=== PATIENT | male | born 1955 | race Caucasian/White ===

== ENCOUNTER 2021-04-12 12:02 | Outpatient (CLI) | payer MEDICARE | END 2021-04-12 12:03 | disposition home or self-care (01) | LOC: CSHWCC 12:02 | PROVIDERS: ATTEND Nurse Practitioner Family | DX: R60.0 Localized edema (principal); I89.0 Lymphedema, not elsewhere classified; N17.9 Acute kidney failure, unspecified; I11.0 Hypertensive heart disease with heart failure; I50.32 Chronic diastolic (congestive) heart failure; J44.9 Chronic obstructive pulmonary disease, unspecified | CPT/HCPCS: 97139; G0463; 99203 ==

== ENCOUNTER 2021-11-10 13:46 | Inpatient (IN) | payer MEDICARE, SELFPAY ==
[2021-11-10 15:13] LABS: #Basophils 0.1 10x3/uL (0.0-0.2); #Eosinphils 0.1 10x3/uL (0.0-0.5); #Monocytes 0.9 10x3/uL (0.0-1.1); #Neutrophils 10.4 10x3/uL (1.5-8.4); %Basophils 0.7 % (0.0-2.0); %Eosinophils 0.8 % (0.0-6.0); %Lymphocytes 7.5 % (18.0-47.0); %Monocytes 6.8 % (0.0-10.0); %Neutrophils 81.9 % (40.0-75.0); Hemoglobin 13.1 g/dL (13.5-17.5); Mean Corpuscular HGB CONC 31.5 g/dL (32.0-36.0); Mean Corpuscular Hemoglobin 28.9 pg (27.0-33.0); Mean Corpuscular Volume 91.8 fl (81.2-95.1); Mean Platelet Volume 9.2 fl (7.4-10.4); Platelet Count 253 10x3/uL (150-450); RBC Distribution Width 17.1 % (11.5-14.5); Red Blood Cell (RBC) Count 4.53 10x6/uL (4.32-5.72); White Blood Cell (WBC) Count 12.7 10x3/uL (3.5-10.5)
[2021-11-10] MEDS ORDERED: Cefepime 2 GM VIAL ONE (15:25)
[2021-11-10 15:26] LABS: INR-International Normal Ratio 1.2; PTT 32.8 sec (22.0-33.0); Prothrombin Time 12.8 sec (9.5-12.1)
[2021-11-10] MEDS ORDERED: Morphine 2 MG/ML VIAL ONE (15:28)
[2021-11-10 15:30] LABS: ALT (SGPT) 12 U/L (8-55); AST (SGOT) 7 U/L (5-34); Albumin 3.3 g/dL (3.4-4.8); Alkaline Phosphatase 92 U/L (40-110); Anion Gap 20 mmol/L (10-20); BUN (Urea Nitrogen) 91 mg/dL (8.4-25.7); Bilirubin, Total 0.5 mg/dL (0.2-1.2); Calc. Creatinine Clearance 0 mL/min (70-130); Calcium 8.7 mg/dL (7.8-10.44); Carbon Dioxide 15 mmol/L (23-31); Chloride 101 mmol/L (98-107); Globulin 4.1 g/dL (2.4-3.5); Glucose 93 mg/dL (80-115); Potassium 5.6 mmol/L (3.5-5.1); Protein, Total 7.4 g/dL (5.8-8.1); Sodium 130 mmol/L (136-145)
[2021-11-10] MEDS ORDERED: Calcium Carbonate 500 MG ChewTAB PO PRN (16:43)
[2021-11-10] MEDS ORDERED: Acetaminophen 325 MG TAB PO PRN (16:43)
[2021-11-10] MEDS ORDERED: Senokot S 8.6-50 MG TAB PO PRN (16:43)
[2021-11-10] MEDS ORDERED: Ondansetron ODT 4 MG TAB PO PRN (16:43)
[2021-11-10] MEDS ORDERED: Ondansetron PF 4 MG/2 ML Vial IVP PRN (16:43)
[2021-11-10] MEDS ORDERED: Norepinephrine 8 MG/0.9% NS 250 ML ONE (16:45)
[2021-11-10] MEDS ORDERED: Vancomycin HCl 1 GM in Sodium Chloride 0.9% 250 ML 300 ML IVPB SCH (17:00)
[2021-11-10 17:06] LABS: SARS-CoV-2 NAA Rapid Test Not Detected (NotDetected)
[2021-11-10 17:07] LABS: CKMB 6.2 ng/mL (0-6.6)
[2021-11-10 17:25] LABS: Bilirubin Neg (Negative); Blood, Urine 25 (Negative); Clarity Clear (Clear); Glucose, Urine (Dipstick) Normal (Negative); Ketone, Urine Negative (Negative); Leukocyte 500 (Negative); Nitrite Negative (Negative); Protein, Urine (Dipstick) 30 mg/dl (Neg-Trace)
[2021-11-10 17:33] LABS: Bacteria/HPF 3+ HPF (None Seen); Squamous Epithelial 0-3 HPF (0-3); WBC/HPF 21-50 HPF (0-3)
[2021-11-10] MEDS: HYDROcodone/Acetaminophen 5/325 mg Tablet PO PRN (20:08)
[2021-11-10] MEDS ORDERED: Insulin Regular 300 UNITS/3 ML VIAL IVP SCH (20:15)
[2021-11-10] MEDS ORDERED: Dextrose 50% Abboject 50 ML SYRINGE SLOW IVP SCH (20:15)
[2021-11-10 20:24] LABS: Anion Gap 19 mmol/L (10-20); BUN (Urea Nitrogen) 89 mg/dL (8.4-25.7); Calc. Creatinine Clearance 22 mL/min (70-130); Calcium 8.1 mg/dL (7.8-10.44); Carbon Dioxide 14 mmol/L (23-31); Chloride 104 mmol/L (98-107); Glucose 123 mg/dL (80-115); Potassium 5.1 mmol/L (3.5-5.1); Sodium 132 mmol/L (136-145)
[2021-11-10] MEDS: Morphine 2 MG/ML VIAL SLOW IVP PRN (21:14)
[2021-11-10] MEDS ORDERED: Midazolam HCl 2 mg/2 ml Vial ONE (21:29)
[2021-11-10] MEDS: Nicotine 14 MG PATCH TD SCH ×2 (22:25→22:28)
[2021-11-10] MEDS: Tamsulosin HCl 0.4 MG CAP PO SCH (22:25)
[2021-11-10] MEDS: Atorvastatin Calcium 20 MG TAB PO SCH (22:25)
[2021-11-10] MEDS: Apixaban 5 MG TAB PO SCH (22:25)
[2021-11-10] MEDS: Sodium Bicarbonate 75 MEQ in Dextrose 5% in Water 500 ML IV SCH (22:45)
[2021-11-10] MEDS ORDERED: Albumin 25% 25 GM/100 ML BOT IVPB SCH (23:15)
[2021-11-11 02:57] LABS: Bilirubin Neg (Negative); Blood, Urine 250 (Negative); Clarity Slightly Cloudy (Clear); Glucose, Urine (Dipstick) 250 mg/dL (Negative); Ketone, Urine Negative (Negative); Leukocyte 500 (Negative); Nitrite Negative (Negative); Protein, Urine (Dipstick) 30 mg/dl (Neg-Trace); Urobilinogen Normal mg/dL (Less than 2)
[2021-11-11] MEDS: Morphine 2 MG/ML VIAL SLOW IVP PRN ×3 (02:57→20:38)
[2021-11-11 03:12] LABS: Creatinine, Urine 97.62 mg/dL (63-166); Protein, Urine Random Quant 49 mg/dL (1-14)
[2021-11-11 03:22] LABS: Bacteria/HPF 1+ HPF (None Seen); RBC/HPF 21-50 HPF (0-3); Renal Epithelial 0-3 HPF (None Seen); Squamous Epithelial 0-3 HPF (0-3); WBC/HPF 21-50 HPF (0-3)
[2021-11-11 04:34] LABS: #Basophils 0.1 10x3/uL (0.0-0.2); #Eosinphils 0.1 10x3/uL (0.0-0.5); #Monocytes 1.1 10x3/uL (0.0-1.1); #Neutrophils 9.2 10x3/uL (1.5-8.4); %Basophils 0.5 % (0.0-2.0); %Eosinophils 1.1 % (0.0-6.0); %Lymphocytes 5.2 % (18.0-47.0); %Monocytes 9.6 % (0.0-10.0); Hemoglobin 11.4 g/dL (13.5-17.5); Mean Corpuscular HGB CONC 30.8 g/dL (32.0-36.0); Mean Corpuscular Hemoglobin 28.6 pg (27.0-33.0); Mean Corpuscular Volume 92.7 fl (81.2-95.1); Mean Platelet Volume 9.3 fl (7.4-10.4); Platelet Count 284 10x3/uL (150-450); RBC Distribution Width 17.1 % (11.5-14.5); Red Blood Cell (RBC) Count 3.99 10x6/uL (4.32-5.72); White Blood Cell (WBC) Count 11.3 10x3/uL (3.5-10.5)
[2021-11-11 04:58] LABS: Anion Gap 19 mmol/L (10-20); BUN (Urea Nitrogen) 85 mg/dL (8.4-25.7); Calc. Creatinine Clearance 24 mL/min (70-130); Calcium 7.7 mg/dL (7.8-10.44); Carbon Dioxide 15 mmol/L (23-31); Chloride 104 mmol/L (98-107); Glucose 129 mg/dL (80-115); Potassium 4.4 mmol/L (3.5-5.1); Sodium 134 mmol/L (136-145)
[2021-11-11] MEDS ORDERED: Vancomycin 1 GM in Premix Bag 1 BAG IVPB PRN (06:21)
[2021-11-11] MEDS: Amiodarone 200 MG TAB PO SCH (08:20)
[2021-11-11] MEDS: HYDROcodone/Acetaminophen 5/325 mg Tablet PO PRN ×3 (08:20→23:35)
[2021-11-11] MEDS: Famotidine 20 MG TAB PO SCH (08:21)
[2021-11-11] MEDS: Sodium Bicarbonate Tab 325 MG TAB PO SCH ×3 (08:21→20:06)
[2021-11-11] MEDS: Apixaban 5 MG TAB PO SCH ×2 (08:21→20:06)
[2021-11-11] MEDS: Clopidogrel Bisulfate 75 MG TAB PO SCH (08:21)
[2021-11-11] MEDS ORDERED: Empagliflozin 10 MG TAB PO SCH (09:00)
[2021-11-11] MEDS ORDERED: Enoxaparin Sodium 40 MG/0.4 ML SYRINGE SC SCH (09:00)
[2021-11-11] MEDS: Sodium Bicarbonate 75 MEQ in Dextrose 5% in Water 500 ML IV SCH ×2 (12:07→23:13)
[2021-11-11 13:57] LABS: Sodium, Urine Less than 20 mmol/L (Not Available); Urea Nitrogen, Random Urine 671 mg/dl
[2021-11-11] MEDS: Cefepime 1 GM in Sodium Chloride 0.9% 100 ML IVPB SCH (14:40)
[2021-11-11 15:30] LABS: Vancomycin, Random 15.1 ug/mL (See Comment)
[2021-11-11] MEDS ORDERED: Vancomycin HCl 500 MG in Sodium Chloride 0.9% 100 ML IVPB SCH (16:00)
[2021-11-11] MEDS: Nicotine 14 MG PATCH TD SCH (16:01)
[2021-11-11] MEDS: Atorvastatin Calcium 20 MG TAB PO SCH (20:07)
[2021-11-11] MEDS: Norepinephrine 8 MG/0.9% NS 250 ML IVPB SCH (20:07)
[2021-11-11] MEDS: Tamsulosin HCl 0.4 MG CAP PO SCH (20:07)
[2021-11-12 05:01] LABS: #Eosinphils 0.1 10x3/uL (0.0-0.5); #Monocytes 0.7 10x3/uL (0.0-1.1); #Neutrophils 5.3 10x3/uL (1.5-8.4); %Basophils 0.6 % (0.0-2.0); %Eosinophils 1.7 % (0.0-6.0); %Lymphocytes 9.6 % (18.0-47.0); %Monocytes 10.4 % (0.0-10.0); Hemoglobin 10.3 g/dL (13.5-17.5); Mean Corpuscular HGB CONC 31.3 g/dL (32.0-36.0); Mean Corpuscular Hemoglobin 28.8 pg (27.0-33.0); Mean Corpuscular Volume 91.9 fl (81.2-95.1); Mean Platelet Volume 9.1 fl (7.4-10.4); Platelet Count 207 10x3/uL (150-450); Red Blood Cell (RBC) Count 3.58 10x6/uL (4.32-5.72); White Blood Cell (WBC) Count 7.1 10x3/uL (3.5-10.5)
[2021-11-12 05:08] LABS: Anion Gap 15 mmol/L (10-20); BUN (Urea Nitrogen) 67 mg/dL (8.4-25.7); Calc. Creatinine Clearance 35 mL/min (70-130); Calcium 7.9 mg/dL (7.8-10.44); Carbon Dioxide 19 mmol/L (23-31); Chloride 102 mmol/L (98-107); Glucose 118 mg/dL (80-115); Potassium 4.1 mmol/L (3.5-5.1); Sodium 132 mmol/L (136-145)
[2021-11-12] MEDS: Norepinephrine 8 MG/0.9% NS 250 ML IVPB SCH (09:55)
[2021-11-12] MEDS: Sodium Bicarbonate Tab 325 MG TAB PO SCH ×3 (09:56→20:16)
[2021-11-12] MEDS: Torsemide 20 MG TAB PO SCH (09:56)
[2021-11-12] MEDS: HYDROcodone/Acetaminophen 5/325 mg Tablet PO PRN ×3 (09:57→20:52)
[2021-11-12] MEDS: Clopidogrel Bisulfate 75 MG TAB PO SCH (09:58)
[2021-11-12] MEDS: Apixaban 5 MG TAB PO SCH ×2 (09:58→20:16)
[2021-11-12] MEDS: Amiodarone 200 MG TAB PO SCH (09:58)
[2021-11-12] MEDS: Famotidine 20 MG TAB PO SCH (09:59)
[2021-11-12] MEDS: Morphine 2 MG/ML VIAL SLOW IVP PRN ×2 (11:39→23:40)
[2021-11-12] MEDS: Cefepime 1 GM in Sodium Chloride 0.9% 100 ML IVPB SCH (14:17)
[2021-11-12 15:47] LABS: Vancomycin, Random 13.1 ug/mL (See Comment)
[2021-11-12] MEDS ORDERED: Vancomycin HCl 1 GM in Sodium Chloride 0.9% 250 ML 250 ML IVPB SCH (16:00)
[2021-11-12] MEDS: Nicotine 14 MG PATCH TD SCH (16:05)
[2021-11-12] MEDS: Atorvastatin Calcium 20 MG TAB PO SCH (20:16)
[2021-11-12] MEDS: Tamsulosin HCl 0.4 MG CAP PO SCH (20:16)
[2021-11-13] MEDS: HYDROcodone/Acetaminophen 5/325 mg Tablet PO PRN ×3 (03:07→19:28)
[2021-11-13] MEDS: Morphine 2 MG/ML VIAL SLOW IVP PRN (04:20)
[2021-11-13 06:44] LABS: #Eosinphils 0.1 10x3/uL (0.0-0.5); #Monocytes 0.7 10x3/uL (0.0-1.1); #Neutrophils 5.1 10x3/uL (1.5-8.4); %Basophils 0.4 % (0.0-2.0); %Eosinophils 1.5 % (0.0-6.0); %Lymphocytes 9.5 % (18.0-47.0); %Monocytes 10.1 % (0.0-10.0); %Neutrophils 75.8 % (40.0-75.0); Anion Gap 14 mmol/L (10-20); BUN (Urea Nitrogen) 55 mg/dL (8.4-25.7); Calc. Creatinine Clearance 51 mL/min (70-130); Calcium 8.5 mg/dL (7.8-10.44); Carbon Dioxide 21 mmol/L (23-31); Chloride 103 mmol/L (98-107); Glucose 86 mg/dL (80-115); Hemoglobin 10.6 g/dL (13.5-17.5); Mean Corpuscular HGB CONC 32.1 g/dL (32.0-36.0); Mean Corpuscular Volume 90.2 fl (81.2-95.1); Mean Platelet Volume 8.9 fl (7.4-10.4); Platelet Count 189 10x3/uL (150-450); Potassium 3.8 mmol/L (3.5-5.1); RBC Distribution Width 16.9 % (11.5-14.5); Red Blood Cell (RBC) Count 3.66 10x6/uL (4.32-5.72); Sodium 134 mmol/L (136-145); White Blood Cell (WBC) Count 6.8 10x3/uL (3.5-10.5)
[2021-11-13] MEDS: Clopidogrel Bisulfate 75 MG TAB PO SCH (08:16)
[2021-11-13] MEDS: Amiodarone 200 MG TAB PO SCH (08:16)
[2021-11-13] MEDS: Apixaban 5 MG TAB PO SCH ×2 (08:16→20:43)
[2021-11-13] MEDS: Sodium Bicarbonate Tab 325 MG TAB PO SCH ×3 (08:16→20:43)
[2021-11-13] MEDS: Famotidine 20 MG TAB PO SCH (08:17)
[2021-11-13] MEDS: Torsemide 20 MG TAB PO SCH (08:17)
[2021-11-13] MEDS: Spironolactone 25 MG TAB PO SCH (09:07)
[2021-11-13] MEDS: Cefepime 1 GM in Sodium Chloride 0.9% 100 ML IVPB SCH (15:11)
[2021-11-13] MEDS: Nicotine 14 MG PATCH TD SCH (15:37)
[2021-11-13] MEDS ORDERED: Vancomycin HCl 750 MG in Sodium Chloride 0.9% 250 ML 250 ML IVPB SCH (17:00)
[2021-11-13] MEDS ORDERED: Sodium Chloride 0.9% 250 ML 250 ML ONE (19:29)
[2021-11-13] MEDS: Tamsulosin HCl 0.4 MG CAP PO SCH (20:43)
[2021-11-13] MEDS: Atorvastatin Calcium 20 MG TAB PO SCH (20:43)
[2021-11-14] MEDS: HYDROcodone/Acetaminophen 5/325 mg Tablet PO PRN ×3 (02:33→21:20)
[2021-11-14] MEDS: Cefepime 1 GM in Sodium Chloride 0.9% 100 ML IVPB SCH ×2 (02:33→14:12)
[2021-11-14 04:08] LABS: #Eosinphils 0.1 10x3/uL (0.0-0.5); #Monocytes 0.8 10x3/uL (0.0-1.1); #Neutrophils 6.3 10x3/uL (1.5-8.4); %Basophils 0.5 % (0.0-2.0); %Eosinophils 1.7 % (0.0-6.0); %Lymphocytes 9.5 % (18.0-47.0); %Monocytes 9.2 % (0.0-10.0); %Neutrophils 76.7 % (40.0-75.0); Hemoglobin 10.6 g/dL (13.5-17.5); Mean Corpuscular HGB CONC 31.5 g/dL (32.0-36.0); Mean Corpuscular Hemoglobin 28.5 pg (27.0-33.0); Mean Corpuscular Volume 90.3 fl (81.2-95.1); Mean Platelet Volume 9.1 fl (7.4-10.4); Platelet Count 191 10x3/uL (150-450); RBC Distribution Width 16.9 % (11.5-14.5); Red Blood Cell (RBC) Count 3.72 10x6/uL (4.32-5.72); White Blood Cell (WBC) Count 8.2 10x3/uL (3.5-10.5)
[2021-11-14 04:19] LABS: Anion Gap 14 mmol/L (10-20); BUN (Urea Nitrogen) 54 mg/dL (8.4-25.7); Calc. Creatinine Clearance 64 mL/min (70-130); Calcium 8.8 mg/dL (7.8-10.44); Carbon Dioxide 23 mmol/L (23-31); Chloride 104 mmol/L (98-107); Glucose 106 mg/dL (80-115); Potassium 3.9 mmol/L (3.5-5.1); Sodium 137 mmol/L (136-145)
[2021-11-14] MEDS ORDERED: Famotidine 20 MG TAB ONE (07:45)
[2021-11-14] MEDS: Famotidine 20 MG TAB PO SCH (08:13)
[2021-11-14] MEDS: Spironolactone 25 MG TAB PO SCH (08:14)
[2021-11-14] MEDS: Apixaban 5 MG TAB PO SCH ×2 (08:14→21:21)
[2021-11-14] MEDS: Clopidogrel Bisulfate 75 MG TAB PO SCH (08:14)
[2021-11-14] MEDS: Sodium Bicarbonate Tab 325 MG TAB PO SCH ×3 (08:14→21:22)
[2021-11-14] MEDS: Amiodarone 200 MG TAB PO SCH (08:14)
[2021-11-14] MEDS: Nicotine 14 MG PATCH TD SCH (14:13)
[2021-11-14] MEDS: Carvedilol 3.125 MG TAB PO SCH (17:12)
[2021-11-14] MEDS: Tamsulosin HCl 0.4 MG CAP PO SCH (21:20)
[2021-11-14] MEDS: Atorvastatin Calcium 20 MG TAB PO SCH (21:20)
[2021-11-15] MEDS: Cefepime 1 GM in Sodium Chloride 0.9% 100 ML IVPB SCH ×2 (04:00→14:49)
[2021-11-15] MEDS: HYDROcodone/Acetaminophen 5/325 mg Tablet PO PRN ×2 (04:21→20:34)
[2021-11-15 06:58] LABS: Hemoglobin 10.7 g/dL (13.5-17.5); Mean Corpuscular HGB CONC 29.5 g/dL (32.0-36.0); Mean Corpuscular Hemoglobin 28.7 pg (27.0-33.0); Mean Corpuscular Volume 97.3 fl (81.2-95.1); Mean Platelet Volume 9.9 fl (7.4-10.4); Platelet Count 218 10x3/uL (150-450); RBC Distribution Width 17.5 % (11.5-14.5); Red Blood Cell (RBC) Count 3.73 10x6/uL (4.32-5.72); White Blood Cell (WBC) Count 6.2 10x3/uL (3.5-10.5)
[2021-11-15] MEDS: Amiodarone 200 MG TAB PO SCH (08:00)
[2021-11-15] MEDS: Apixaban 5 MG TAB PO SCH ×2 (08:01→20:32)
[2021-11-15] MEDS: Spironolactone 25 MG TAB PO SCH (08:02)
[2021-11-15] MEDS: Carvedilol 3.125 MG TAB PO SCH ×2 (08:02→18:01)
[2021-11-15] MEDS: Clopidogrel Bisulfate 75 MG TAB PO SCH (08:03)
[2021-11-15] MEDS: Famotidine 20 MG TAB PO SCH (08:04)
[2021-11-15] MEDS: Sodium Bicarbonate Tab 325 MG TAB PO SCH ×3 (08:05→20:32)
[2021-11-15 08:48] LABS: Albumin 2.8 g/dL (3.4-4.8); Anion Gap 13 mmol/L (10-20); BUN (Urea Nitrogen) 50 mg/dL (8.4-25.7); BUN/Creatinine Ratio 35.21; Calc. Creatinine Clearance 77 mL/min (70-130); Calcium 9.3 mg/dL (7.8-10.44); Carbon Dioxide 24 mmol/L (23-31); Chloride 104 mmol/L (98-107); Glucose 97 mg/dL (80-115); Magnesium 2.1 mg/dL (1.6-2.6); Phosphorus 3.2 mg/dL (2.3-4.7); Sodium 137 mmol/L (136-145)
[2021-11-15] MEDS: Empagliflozin 10 MG TAB PO SCH (09:40)
[2021-11-15] MEDS ORDERED: Morphine 2 MG/ML VIAL SLOW IVP SCH (11:30)
[2021-11-15] MEDS: Nicotine 14 MG PATCH TD SCH (18:00)
[2021-11-15] MEDS: Tamsulosin HCl 0.4 MG CAP PO SCH (20:32)
[2021-11-15] MEDS: Atorvastatin Calcium 20 MG TAB PO SCH (20:32)
[2021-11-16] MEDS: Cefepime 1 GM in Sodium Chloride 0.9% 100 ML IVPB SCH ×2 (02:32→16:42)
[2021-11-16 05:02] LABS: Albumin 2.7 g/dL (3.4-4.8); Anion Gap 14 mmol/L (10-20); BUN (Urea Nitrogen) 49 mg/dL (8.4-25.7); BUN/Creatinine Ratio 37.12; Calc. Creatinine Clearance 85 mL/min (70-130); Calcium 9.1 mg/dL (7.8-10.44); Carbon Dioxide 25 mmol/L (23-31); Chloride 105 mmol/L (98-107); Glucose 95 mg/dL (80-115); Phosphorus 2.9 mg/dL (2.3-4.7); Potassium 4.5 mmol/L (3.5-5.1); Sodium 139 mmol/L (136-145)
[2021-11-16] MEDS: Clopidogrel Bisulfate 75 MG TAB PO SCH (08:50)
[2021-11-16] MEDS: Spironolactone 25 MG TAB PO SCH (08:50)
[2021-11-16] MEDS: Sodium Bicarbonate Tab 325 MG TAB PO SCH ×3 (08:50→20:50)
[2021-11-16] MEDS: Carvedilol 3.125 MG TAB PO SCH ×2 (08:50→18:40)
[2021-11-16] MEDS: Apixaban 5 MG TAB PO SCH ×2 (08:50→20:51)
[2021-11-16] MEDS: Amiodarone 200 MG TAB PO SCH (08:51)
[2021-11-16] MEDS: Famotidine 20 MG TAB PO SCH (08:51)
[2021-11-16] MEDS: HYDROcodone/Acetaminophen 5/325 mg Tablet PO PRN ×2 (08:52→16:43)
[2021-11-16] MEDS: Torsemide 20 MG TAB PO SCH (08:53)
[2021-11-16] MEDS: Empagliflozin 10 MG TAB PO SCH (09:51)
[2021-11-16] MEDS: Nicotine 14 MG PATCH TD SCH (18:40)
[2021-11-16] MEDS: Atorvastatin Calcium 20 MG TAB PO SCH (20:50)
[2021-11-16] MEDS: Tamsulosin HCl 0.4 MG CAP PO SCH (20:51)
[2021-11-17] MEDS: HYDROcodone/Acetaminophen 5/325 mg Tablet PO PRN ×4 (00:10→23:59)
[2021-11-17 05:23] LABS: Albumin 2.7 g/dL (3.4-4.8); Anion Gap 15 mmol/L (10-20); BUN (Urea Nitrogen) 49 mg/dL (8.4-25.7); BUN/Creatinine Ratio 35.25; Calc. Creatinine Clearance 85 mL/min (70-130); Calcium 9.3 mg/dL (7.8-10.44); Carbon Dioxide 26 mmol/L (23-31); Chloride 104 mmol/L (98-107); Glucose 94 mg/dL (80-115); Phosphorus 3.7 mg/dL (2.3-4.7); Potassium 4.5 mmol/L (3.5-5.1); Sodium 140 mmol/L (136-145)
[2021-11-17 07:20] LABS: Iron 45 ug/dL (65-175); Iron Binding Capacity, Total 294 mcg/dL (261-462)
[2021-11-17] MEDS ORDERED: Iron Sucrose Complex 400 MG in Sodium Chloride 0.9% 200 ML IVPB SCH (07:45)
[2021-11-17] MEDS: Famotidine 20 MG TAB PO SCH (09:35)
[2021-11-17] MEDS: Sodium Bicarbonate Tab 325 MG TAB PO SCH ×3 (09:35→21:00)
[2021-11-17] MEDS: Spironolactone 25 MG TAB PO SCH (09:36)
[2021-11-17] MEDS: Torsemide 20 MG TAB PO SCH (09:36)
[2021-11-17] MEDS: Carvedilol 3.125 MG TAB PO SCH ×2 (09:36→16:08)
[2021-11-17] MEDS: Ergocalciferol 1.25 MG(50,000 UNITS) CAP PO SCH (09:36)
[2021-11-17] MEDS: Clopidogrel Bisulfate 75 MG TAB PO SCH (09:37)
[2021-11-17] MEDS: Empagliflozin 10 MG TAB PO SCH (09:37)
[2021-11-17] MEDS: Apixaban 5 MG TAB PO SCH ×2 (09:37→21:00)
[2021-11-17] MEDS: Amiodarone 200 MG TAB PO SCH (09:38)
[2021-11-17] MEDS ORDERED: Digoxin 0.125 MG TAB PO SCH (11:00)
[2021-11-17] MEDS ORDERED: Cholecalciferol (Vitamin D3) 400 UNITS TAB PO SCH (11:00)
[2021-11-17] MEDS ORDERED: Morphine 2 MG/ML VIAL SLOW IVP SCH (12:15)
[2021-11-17 12:33] LABS: Free T4 (Free Thyroxine) 1.49 ng/dL (0.70-1.48)
[2021-11-17 12:35] VITALS: BMI 35.8
[2021-11-17] MEDS: Iron, Sodium Ferric Gluconate 250 MG in Sodium Chloride 0.9% 250 ML 250 ML IVPB SCH (16:08)
[2021-11-17] MEDS: Nicotine 14 MG PATCH TD SCH (16:08)
[2021-11-17] MEDS: Tamsulosin HCl 0.4 MG CAP PO SCH (21:00)
[2021-11-17] MEDS: Atorvastatin Calcium 20 MG TAB PO SCH (21:00)
[2021-11-18] MEDS: Iron, Sodium Ferric Gluconate 250 MG in Sodium Chloride 0.9% 250 ML 250 ML IVPB SCH (03:16)
[2021-11-18 04:41] LABS: Albumin 2.7 g/dL (3.4-4.8); Anion Gap 15 mmol/L (10-20); BUN (Urea Nitrogen) 46 mg/dL (8.4-25.7); BUN/Creatinine Ratio 36.51; Calc. Creatinine Clearance 94 mL/min (70-130); Calcium 9.1 mg/dL (7.8-10.44); Carbon Dioxide 26 mmol/L (23-31); Chloride 102 mmol/L (98-107); Glucose 95 mg/dL (80-115); Phosphorus 4.2 mg/dL (2.3-4.7); Potassium 4.5 mmol/L (3.5-5.1); Sodium 138 mmol/L (136-145)
[2021-11-18] MEDS: Spironolactone 25 MG TAB PO SCH (08:55)
[2021-11-18] MEDS: Famotidine 20 MG TAB PO SCH (08:55)
[2021-11-18] MEDS: Digoxin 0.125 MG TAB PO SCH (08:55)
[2021-11-18] MEDS: Sodium Bicarbonate Tab 325 MG TAB PO SCH ×3 (08:55→21:28)
[2021-11-18] MEDS: Amiodarone 200 MG TAB PO SCH (08:56)
[2021-11-18] MEDS: Empagliflozin 10 MG TAB PO SCH (08:56)
[2021-11-18] MEDS: Apixaban 5 MG TAB PO SCH ×2 (08:56→21:27)
[2021-11-18] MEDS: Carvedilol 3.125 MG TAB PO SCH ×2 (08:56→17:35)
[2021-11-18] MEDS: HYDROcodone/Acetaminophen 5/325 mg Tablet PO PRN ×2 (08:57→17:34)
[2021-11-18] MEDS: Clopidogrel Bisulfate 75 MG TAB PO SCH (08:58)
[2021-11-18] MEDS ORDERED: Cholecalciferol (Vitamin D3) 400 UNITS TAB PO SCH (09:00)
[2021-11-18] MEDS: Nicotine 14 MG PATCH TD SCH (09:01)
[2021-11-18] MEDS ORDERED: Proctozone-HC 30 GM TUBE TOP SCH (09:30)
[2021-11-18] MEDS: Tamsulosin HCl 0.4 MG CAP PO SCH (21:27)
[2021-11-18] MEDS: Atorvastatin Calcium 20 MG TAB PO SCH (21:28)
[2021-11-19] MEDS: HYDROcodone/Acetaminophen 5/325 mg Tablet PO PRN ×2 (02:54→11:37)
[2021-11-19 05:06] LABS: Albumin 2.9 g/dL (3.4-4.8); Anion Gap 15 mmol/L (10-20); BUN (Urea Nitrogen) 39 mg/dL (8.4-25.7); BUN/Creatinine Ratio 30.23; Calc. Creatinine Clearance 91 mL/min (70-130); Calcium 9.2 mg/dL (7.8-10.44); Carbon Dioxide 25 mmol/L (23-31); Chloride 101 mmol/L (98-107); Glucose 101 mg/dL (80-115); Phosphorus 4.1 mg/dL (2.3-4.7); Potassium 4.5 mmol/L (3.5-5.1); Sodium 136 mmol/L (136-145)
[2021-11-19] MEDS: Famotidine 20 MG TAB PO SCH (06:36)
[2021-11-19] MEDS: Apixaban 5 MG TAB PO SCH (06:37)
[2021-11-19] MEDS: Sodium Bicarbonate Tab 325 MG TAB PO SCH ×2 (06:37→16:44)
[2021-11-19] MEDS: Amiodarone 200 MG TAB PO SCH (06:37)
[2021-11-19] MEDS: Carvedilol 3.125 MG TAB PO SCH ×2 (06:38→16:49)
[2021-11-19] MEDS: Clopidogrel Bisulfate 75 MG TAB PO SCH (06:38)
[2021-11-19] MEDS: Digoxin 0.125 MG TAB PO SCH (06:38)
[2021-11-19] MEDS: Ergocalciferol 1.25 MG(50,000 UNITS) CAP PO SCH (06:38)
[2021-11-19] MEDS ORDERED: Proctozone-HC 30 GM TUBE TOP SCH (09:00)
[2021-11-19] MEDS: Spironolactone 25 MG TAB PO SCH (09:27)
[2021-11-19] MEDS: Empagliflozin 10 MG TAB PO SCH (09:27)
[2021-11-19] MEDS: Nicotine 14 MG PATCH TD SCH (16:49)
[2021-11-19 19:31] VITALS: BP 115/60; TEMP 97.8
[2021-11-20] MEDS ORDERED: Proctozone-HC 30 GM TUBE TOP SCH (10:00)
== END 2021-11-19 18:20 | disposition swing bed (61) | DRG 871 ==
LOC: CSHERS 13:46 → CSHIMCU 17:17 → CSHTELE 11-15 17:00
PROVIDERS: ADMIT Hospitalist; ATTEND Hospitalist
PROC: 02HV33Z Insertion of Infusion Device into Superior Vena Cava, Percutaneous Approach (ICD-10-PCS; 2021-11-10)
PROC: 3E04329 Introduction of Other Anti-infective into Central Vein, Percutaneous Approach (ICD-10-PCS; 2021-11-10)
PROC: 3E043XZ Introduction of Vasopressor into Central Vein, Percutaneous Approach (ICD-10-PCS; 2021-11-10)
PROC: 5A2204Z Restoration of Cardiac Rhythm, Single (ICD-10-PCS; principal; 2021-11-19)
DX: A41.9 Sepsis, unspecified organism (principal); R65.21 Severe sepsis with septic shock; N17.0 Acute kidney failure with tubular necrosis; I50.43 Acute on chronic combined systolic (congestive) and diastolic (congestive) heart failure; L03.115 Cellulitis of right lower limb; L03.116 Cellulitis of left lower limb; N18.5 Chronic kidney disease, stage 5; I13.0 Hypertensive heart and chronic kidney disease with heart failure and stage 1 through stage 4 chronic kidney disease, or unspecified chronic kidney disease; I48.19 Other persistent atrial fibrillation; I25.10 Atherosclerotic heart disease of native coronary artery without angina pectoris; J44.9 Chronic obstructive pulmonary disease, unspecified; F17.210 Nicotine dependence, cigarettes, uncomplicated; E87.5 Hyperkalemia; E11.22 Type 2 diabetes mellitus with diabetic chronic kidney disease; E11.21 Type 2 diabetes mellitus with diabetic nephropathy; E87.6 Hypokalemia; I25.5 Ischemic cardiomyopathy; D63.1 Anemia in chronic kidney disease; E78.2 Mixed hyperlipidemia; F32.A Depression, unspecified; G47.09 Other insomnia; L97.529 Non-pressure chronic ulcer of other part of left foot with unspecified severity; I44.0 Atrioventricular block, first degree; E11.65 Type 2 diabetes mellitus with hyperglycemia; E66.9 Obesity, unspecified; E11.621 Type 2 diabetes mellitus with foot ulcer; N40.0 Benign prostatic hyperplasia without lower urinary tract symptoms; E11.628 Type 2 diabetes mellitus with other skin complications; E55.9 Vitamin D deficiency, unspecified; Z20.822 Contact with and (suspected) exposure to COVID-19; Z95.1 Presence of aortocoronary bypass graft; Z86.73 Personal history of transient ischemic attack (TIA), and cerebral infarction without residual deficits; I25.2 Old myocardial infarction; Z79.82 Long term (current) use of aspirin; Z79.01 Long term (current) use of anticoagulants; Z79.899 Other long term (current) drug therapy; Z95.5 Presence of coronary angioplasty implant and graft; Z88.8 Allergy status to other drugs, medicaments and biological substances; Z72.89 Other problems related to lifestyle; Z79.84 Long term (current) use of oral hypoglycemic drugs; Z79.02 Long term (current) use of antithrombotics/antiplatelets; Z82.49 Family history of ischemic heart disease and other diseases of the circulatory system; Z83.3 Family history of diabetes mellitus; Z68.35 Body mass index [BMI] 35.0-35.9, adult
CPT/HCPCS: 36415; 36416; 71045; 80048; 80053; 80069; 80202; 81001; 81003; 81015; 82306; 82553; 82570; 82728; 83540; 83550; 83605; 83735; 83880; 84156; 84300; 84439; 84443; 84484; 84540; 85025; 85027; 85610; 85730; 87040; 87077; 87086; 87186; 92960; 93005; 93010; 94760; J0692; J2270; J2916; J3370; J3490; J7050; J7070; P9047; U0002; U0003; U0005

== ENCOUNTER 2021-12-16 08:18 | Outpatient (CLI) | payer MEDICARE | END 2021-12-16 08:19 | disposition home or self-care (01) | LOC: CSHWCC 08:18 | PROVIDERS: ATTEND Nurse Practitioner Family | DX: I87.331 Chronic venous hypertension (idiopathic) with ulcer and inflammation of right lower extremity (principal); L97.212 Non-pressure chronic ulcer of right calf with fat layer exposed; R60.0 Localized edema ==

== ENCOUNTER 2021-12-20 14:05 | Outpatient (CLI) | payer MEDICARE | END 2021-12-20 14:06 | disposition home or self-care (01) | LOC: CSHWCC 14:05 | PROVIDERS: ATTEND Nurse Practitioner Family | DX: I87.331 Chronic venous hypertension (idiopathic) with ulcer and inflammation of right lower extremity (principal); L97.818 Non-pressure chronic ulcer of other part of right lower leg with other specified severity; L97.212 Non-pressure chronic ulcer of right calf with fat layer exposed; S91.301D Unspecified open wound, right foot, subsequent encounter; R60.0 Localized edema | CPT/HCPCS: 29581 ==

== ENCOUNTER 2021-12-27 14:20 | Outpatient (CLI) | payer MEDICARE | END 2021-12-27 14:21 | disposition home or self-care (01) | LOC: CSHWCC 14:20 | PROVIDERS: ATTEND Nurse Practitioner Family | DX: I87.311 Chronic venous hypertension (idiopathic) with ulcer of right lower extremity (principal); L97.818 Non-pressure chronic ulcer of other part of right lower leg with other specified severity; S91.301D Unspecified open wound, right foot, subsequent encounter; R60.0 Localized edema | CPT/HCPCS: 99214; G0463 ==

== ENCOUNTER 2021-12-30 15:18 | Outpatient (CLI) | payer MEDICARE | END 2021-12-30 15:19 | disposition home or self-care (01) | LOC: CSHWCC 15:18 | PROVIDERS: ATTEND Nurse Practitioner Family | DX: I87.311 Chronic venous hypertension (idiopathic) with ulcer of right lower extremity (principal); L97.818 Non-pressure chronic ulcer of other part of right lower leg with other specified severity; S91.301D Unspecified open wound, right foot, subsequent encounter; R60.0 Localized edema | CPT/HCPCS: 29581 ==

== ENCOUNTER 2022-01-06 14:49 | Outpatient (CLI) | payer MEDICARE | END 2022-01-06 14:50 | disposition home or self-care (01) | LOC: CSHWCC 14:49 | PROVIDERS: ATTEND Nurse Practitioner Family | DX: I87.311 Chronic venous hypertension (idiopathic) with ulcer of right lower extremity (principal); L97.818 Non-pressure chronic ulcer of other part of right lower leg with other specified severity; S91.301D Unspecified open wound, right foot, subsequent encounter; R60.0 Localized edema | CPT/HCPCS: 29581 ==

== ENCOUNTER 2022-01-13 14:23 | Outpatient (CLI) | payer MEDICARE | END 2022-01-13 14:24 | disposition home or self-care (01) | LOC: CSHWCC 14:23 | PROVIDERS: ATTEND Nurse Practitioner Family | DX: I87.311 Chronic venous hypertension (idiopathic) with ulcer of right lower extremity (principal); L97.818 Non-pressure chronic ulcer of other part of right lower leg with other specified severity; S91.301D Unspecified open wound, right foot, subsequent encounter ==

== ENCOUNTER 2022-02-10 14:22 | Outpatient (CLI) | payer OTHER | END 2022-02-10 14:23 | disposition home or self-care (01) | LOC: CSHWCC 14:22 | PROVIDERS: ATTEND Preventive Medicine Undersea and Hyperbaric Medicine | DX: I87.332 Chronic venous hypertension (idiopathic) with ulcer and inflammation of left lower extremity (principal); L97.822 Non-pressure chronic ulcer of other part of left lower leg with fat layer exposed; R60.0 Localized edema | CPT/HCPCS: 97139; G0463; 99213 ==

== ENCOUNTER 2022-03-03 14:24 | Outpatient (CLI) | payer MEDICARE | END 2022-03-03 14:25 | disposition home or self-care (01) | LOC: CSHWCC 14:24 | PROVIDERS: ATTEND Preventive Medicine Undersea and Hyperbaric Medicine | DX: I87.332 Chronic venous hypertension (idiopathic) with ulcer and inflammation of left lower extremity (principal); L97.822 Non-pressure chronic ulcer of other part of left lower leg with fat layer exposed; R60.0 Localized edema | CPT/HCPCS: 97139; G0463; 99212 ==